=== PATIENT | male | born 1945 | race Caucasian/White ===

== ENCOUNTER → 2019-10-15 14:51 | Outpatient (CLI) | payer MEDICARE, OTHER, SELFPAY ==
[2019-10-15 16:59] LABS: Prostate Specific Ag Screen 1.8 ng/ml (0.0-4.0)
== END ==
PROVIDERS: Visit Provider Urology
DX: Z12.5 Encounter for screening for malignant neoplasm of prostate (principal)
CPT/HCPCS: 36415; G0103